=== PATIENT | female | born 1970 | race Caucasian/White ===

== ENCOUNTER 2016-03-17 13:26 | Observation (INO) | payer OTHER ==
[~2016-03-17] VITALS: Ht 165.1 cm; Wt 127.6 kg
--- NOTE | 2016-03-17 15:47 | ED ORDER SUMMARY ---
..... Patient: SOTERO ALDANA I OrderSheet [facility] VisitID: [id number] [address] [place] [address] 46y, F Registration Date/Time: 03/17/2016 ORDER SHEET Weight: 124.7 kg (estimated) Allergies: No Known Drug Allergy GENERAL ORDERS: CBC w Diff Urgent (14:18 03/17/2016 EKoroleva P.A.-C) (Ack 14:25 LNations ER Tech1) (14:36 EHassan R.N.) PT with INR Urgent (14:18 03/17/2016 EKoroleva P.A.-C) (Ack 14:25 LNations ER Tech1) (14:36 EHassan R.N.) PTT Urgent (14:18 03/17/2016 EKoroleva P.A.-C) (Ack 14:25 LNations ER Tech1) (14:36 EHassan R.N.) Vitals (14:18 03/17/2016 EKoroleva P.A.-C) (14:22 SBalde R.N.) EKG - ER Stat (14:53 03/17/2016 EKoroleva P.A.-C) (Ack 14:59 LNations ER Tech1) (15:01 LNations ER Tech1) Vitals (15:34 03/17/2016 EKoroleva P.A.-C) (Ack 15:52 LNations ER Tech1) (16:00 EHassan R.N.) Chest 2V Urgent (15:48 03/17/2016 EKoroleva P.A.-C) (Ack 16:08 LTapper) (16:23 MCampbell) BMP Urgent (15:48 03/17/2016 EKoroleva P.A.-C) (Ack 16:08 LTapper) (16:43 EHassan R.N.) Troponin-I Urgent (15:48 03/17/2016 EKoroleva P.A.-C) (Ack 16:08 LTapper) (16:43 EHassan R.N.) D-Dimer Urgent (16:40 03/17/2016 EKoroleva P.A.-C) (Ack 16:46 LNations ER Tech1) (17:06 EHassan R.N.) CTA Thorax w Cont (Yes) (see lab) Urgent (17:11 03/17/2016 EKoroleva P.A.-C) (Ack 17:13 LNations ER Tech1) (17:21 EHassan R.N.) Brick Catcher (Continuous) (17:15 03/17/2016 EKoroleva P.A.-C) (17:21 EHassan R.N.) CPK (from old lab) Urgent (18:38 03/17/2016 EKoroleva P.A.-C) (Ack 18:39 LNations ER Tech1) (20:04 EHassan R.N.) CPK (1940) Urgent (18:39 03/17/2016 EKoroleva P.A.-C) (Ack 18:54 LNations ER Tech1) (20:04 EHassan R.N.) Troponin-I (194) Urgent (18:39 03/17/2016 EKoroleva P.A.-C) (Ack 19:14 AMcQuoid ER Tech1) (20:04 EHassan R.N.) MEDICATION ORDERS: Afrin Nasal [place] 2 sprays (to LEFT nare, after blowing from left nare complete ) (13:50 03/17/2016 EKoroleva P.A.-C) (14:01 EHassan R.N.) NitroGLYCERIN Paste Topical 1 in. (NOW) (18:22 03/17/2016 EKoroleva P.A.-C) (18:35 EHassan R.N.) GI Cocktail WHITE PO 30 mL with Lidocaine Viscous Mouth/Throat 15 mL, Maalox Plus Oral 15 mL (NOW) (18:35 03/17/2016 EKoroleva P.A.-C) (Ack 18:39 JBoardley R.N.) (18:45 JBoardley R.N.) Carafate PO 1 gm (NOW) (18:37 03/17/2016 EKoroleva P.A.-C) (Ack 18:39 JBoardley R.N.) (18:46 Maynor Matute) IV FLUIDS: IV NS : initial bolus 1000 mL (1000 mL/hr), then 1000 mL/hr for X1 (NOW); David (14:18 03/17/2016 Sherry P.A.-C) (14:33 Edi Matute) Morphine IV 4 mg (HIGH ALERT MEDICATION, NOW) (16:59 03/17/2016 Sherry P.A.-C) (17:09 Adis Matute) Reglan IV 10 mg (NOW) (17:23 03/17/2016 Sherry P.A.-C) (Cancelled: Patient [id number] Adis Matute) ORDER SHEET NOTES: [Electronically signed by Magi Greenfield R.N. (21:40 03/17/2016)] [Electronically signed by Melida NolascoABebo-Masha (21:45 03/17/2016)] [Electronically locked/signed by Magi Greenfield R.N. (21:40 03/17/2016)]
--- NOTE | 2016-03-17 15:47 | ED NURSING NOTES ---
Clinical Report - Nurses [facility] [address] [place] [address] 03/17/2016 13:27 Patient: SOTERO ALDANA I TRIAGE Triage time 13:33 Mar 17 2016. Acuity: LEVEL 4. Chief Complaint: NOSEBLEED and (last nose bleed was ). Alert. No acute distress. (anxious). --13:41 Cindi Olivas R.N. 13:32 03/17/16. BP: 171/89. HR: 113. RR: 18. O2 saturation: 99%. Temp: 98.2 F. Pain level now 0/10. --13:41 Cindi Olivas R.N. Weight: 124.7 kg estimated. Height/Length: 63 inches Estimated. BMI: 48.7. --13:32 Cindi Olivas R.N. Medications Lisinopril Oral (Tablet 20 mg), daily. --13:35 Cindi Olivas R.N. MetFORMIN HCl Oral (Tablet 1000 mg), 2x a day. --13:35 Cindi Olivas R.N. Glimepiride Oral unknown dose, daily. --13:36 Cindi Olivas R.N. Vitamins. --13:36 Cindi Olivas R.N. Atorvastatin Calcium Oral 20 mg, daily. --21:36 Magi Greenfield R.N. Medication/allergy information source: the patient. --13:41 Cindi Olivas R.N. Allergies No Known Drug Allergy. --13:36 Cindi Olivas R.N. History Arrived by EMS. Historian: patient. Accompanied by family. Primary physician (Dr. Fong). ( 25 minutes of a nosebleed. No blood thinners.). This started just prior to arrival. 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 SURGERY HX: . Cholecystectomy. ( blood clot in lung after last - over 15 years ago). SOCIAL HX: Never smoker. No alcohol use or drug use. No infectious disease exposure. NUTRITIONAL RISK ASSESSMENT: The nutritional risk assessment revealed no deficiencies. FUNCTIONAL ASSESSMENT: Functional assessment: no impairments noted. LEARNING NEEDS ASSESSMENT: The learning needs assessment revealed no barriers. SKIN INTEGRITY ASSESSMENT: Skin integrity risk assessment completed. No skin integrity risk identified. --13:41 Cindi Olivas R.N. PROBLEMS: Hypertension. Diabetes Mellitus. --13:39 Cindi Olivas R.N. Interventions ID band on patient. To room. --13:41 Cindi Olivas R.N. PHYSICAL ASSESSMENT To room via stretcher. CVS: Capillary refill less than 2 seconds. SKIN: Skin is warm and dry. --13:44 Cindi Olivas R.N. NURSING PROGRESS NOTES ( Suction set up, pt using it to spit. Nose plug on nose. Daughter at bedside Interpreting.). --13:44 Cindi Olivas R.N. 14:01 03/17/2016 Afrin (Oxymetazoline HCl) Nasal [place] 2 spray given. Given in the left nare. Allergies verified and confirmed 5 rights. --14:01 Magi Greenfield R.N. 14:02 03/17/16. BP: 168/81. HR: 110. RR: 16. O2 saturation: 100% on room air. Pain level now: 10. --14:04 Magi Greenfield R.N. Reassurance given. The patient is calm. Overall patient status is the same- she states feels better. ( Pt states feeling better, bleeding has subsided, spray given as directed.). GENERAL / NEURO / PSYCH: The patient reports global headache that is mild in severity. Two patient identifiers checked. Call light placed in reach. Bed placed in lowest position. Brakes of bed on. Brakes of chair on. --14:04 Magi Greenfield R.N. 14:22 03/17/16. BP: 153/77. HR: 97. RR: 18. O2 saturation: 98%. Pain level now 8/10. --14:23 Cindi Olivas R.N. 14:32 03/17/2016 Site #1 started via IV in the right forearm with an 20g angiocath; one attempt. Saline lock flushed with 5 mL saline (unsuccessful for blood). --14:32 Cindi Olivas R.N. ( Lab here for blood draw). --14:33 Cindi Olivas R.N. 14:33 03/17/2016 Started bag #1 1000 mL IV Fluids IV NS (Saline); at 1000 mL/hr over 1 hour(s) via site #1 via IV pump. Completed per protocol. --14:33 Cindi Olivas R.N. EKG time: (15:02). EKG was performed by a alverto and shown to the ED physician. --15:05 Dustin Carlisle 15:02 03/17/2016 Afrin Nasal [place] Response: no adverse reaction pain is improving. Symptoms have improved the patient feels better. --15:12 Magi Greenfield R.N. 15:00 03/17/16. BP: 151/76 (regular adult cuff) taken on the left arm, via an automated monitor, while lying. HR: 91. RR: 12. O2 saturation: 95% on room air. Pain level now: 05/19. --15:32 Magi Greenfield R.N. Pulse oximeter and NIBP monitor placed on patient. Reassurance given. Reassessment after fluids administered. She is calm and has had no adverse reaction. Overall patient status is improved- she states feels better. GENERAL / NEURO / PSYCH: The patient reports headache is still present but improving and is currently described as throbbing. Alert. Oriented X 4. Call light placed in reach. Brakes of bed on. Brakes of chair on. --15:32 Magi Greenfield R.N. 15:58 03/17/16. BP: 159/78. HR: 101. RR: 18. O2 saturation: 99%. Temp: 98.7 F (oral). Pain level now: 06/18. --16:12 Magi Greenfield R.N. Patient ID band checked for patient name, birthdate and medical record number: patient confirmed. Blood samples drawn from the right antecubital space with 22g butterfly by nurse per protocol ; labeled in presence of the patient and sent to lab: rainbow set. Reassurance given. Reassessment after fluids administered. She has had no adverse reaction. Overall patient status is the same- she states feels worse. ( Pt at approximately 1555 c/o of chest pain VSS, labs obtained as per jagruti HOLM). GENERAL / NEURO / PSYCH: Alert. Oriented X 4. Patient identifiers checked. Call light placed in reach. Brakes of bed on. Brakes of chair on. --16:12 Magi Greenfield R.N. Patient transported to radiology by stretcher. (1613 PM). --16:13 Magi Greenfield R.N. 15:35 03/17/2016 IV Fluids IV NS Discontinued: bag #1 completed. Total amount infused: 1000 mL. IV patency established. IV site checked: no pain, redness, or swelling. IV flushed thoroughly. --17:22 Magi Greenfield R.N. 17:09 03/17/2016 Morphine IVP 4 mg given over 2 minute(s) via site #1. Allergies verified, confirmed 5 rights and sedative warning given to the patient. IVP given by RN. --17:09 Magi Greenfield R.N. 17:09 03/17/16. BP: 147/75. HR: 99. RR: 15. O2 saturation: 97%. Temp: 98.2 F (oral). Pain level now: 06/18. --17:20 Magi Greenfield R.N. Cardiac rhythm: normal sinus rhythm. air sampling and monitoring, pulse oximeter and NIBP monitor placed on patient. Reassurance given. GENERAL / NEURO / PSYCH: Alert. Oriented X 4. RESPIRATORY: Respiratory distress present. Breath sounds normal. SKIN: Skin is warm. Two patient identifiers checked. Call light placed in reach. Side rails up x 1. Brakes of bed on. Brakes of chair on. Patient ready for evaluation- RHYTHMIC GYMNASTICS COACH notified. --17:20 Magi Greenfield R.N. 18:18 03/17/16. BP: 143/76. HR: 87. RR: 16. O2 saturation: 98%. Pain level now: 10. --18:21 Magi Greenfield R.N. Cardiac rhythm: normal sinus rhythm. air sampling and monitoring, pulse oximeter and NIBP monitor placed on patient. Reassurance given. Reassessment after intervention and medication administered. She is resting quietly and has had no adverse reaction. Overall patient status is the same- she states feels the same. GENERAL / NEURO / PSYCH: The patient reports headache. Alert. Oriented X 4. Patient returned from CT by stretcher. Call light placed in reach. Side rails up. Bed placed in lowest position. Brakes of bed on. ( Pt returned from CT, still has H/A, and has CP with radiation to left arm and back side (mid scapula) "feels like needles"). --18:21 Magi Greenfield R.N. 18:30 03/17/2016 NITROGLYCERIN PASTE Topical Paste 1 inch. Applied to the right upper arm. Allergies verified and confirmed 5 rights. --18:35 Magi Greenfield R.N. 18:45 03/17/2016 GI COCKTAIL WHITE (Simethicone) PO 30 mL given. Allergies verified and confirmed 5 rights. --18:45 Bruno Irizarry R.N. 18:46 03/17/2016 Carafate (Sucralfate) PO 1 gm given. Allergies verified and confirmed 5 rights. --18:46 Bruno Irizarry R.N. 18:46 03/17/16. BP: 128/74. HR: 88. RR: 16. O2 saturation: 99% on room air. --18:46 Bruno Irizarry R.N. 18:46 03/17/16. Cardiac rhythm: normal sinus rhythm; (87). --18:46 Bruno Irizarry R.N. 18:46 03/17/16. Patient and family informed about reason for wait and about plan of care. --18:46 Bruno Irizarry R.N. 18:47 03/17/16. ( Pt aware of blood draw to be completed at 1940). --18:47 Bruno Irizarry R.N. 19:06 03/17/16. Reassessment after medication administered. Overall patient status is the same- she states feels the same. --19:06 Bruno Irizarry R.N. 19:06 03/17/16. ( Provider at bedside). --19:06 Bruno Irizarry R.N. 19:00 03/17/16. BP: 129/70 (regular adult cuff) taken on the left arm, via an automated monitor, while lying. HR: 93. RR: 15. O2 saturation: 97% on room air. Temp: 98.2 F (oral). Pain level now: 06/18. --19:22 Magi Greenfield R.N. Cardiac rhythm: normal sinus rhythm. air sampling and monitoring, pulse oximeter and NIBP monitor placed on patient. The patient is calm and resting quietly. Overall patient status is the same- she states feels the same. ( Pt is still experiencing CP with tingling down left arm and mid scapula back, plus KING, meds/cocktail and nitro paste given without any relief.). GENERAL / NEURO / PSYCH: The patient reports headache. Call light placed in reach. Side rails up x 1. Brakes of bed on. --19:22 Magi Greenfield R.N. 19:05 03/17/2016 NITROGLYCERIN PASTE Topical Response: no adverse reaction symptoms are the same. The patient feels the same. --20:05 Magi Greenfield R.N. 19:39 03/17/2016 GI COCKTAIL WHITE PO Response: no adverse reaction. --20:04 Magi Greenfield R.N. 19:40 03/17/2016 Carafate PO Response: no adverse reaction. --20:05 Magi Greenfield R.N. 20:03 03/17/16. BP: 128/80. HR: 90. RR: 15. O2 saturation: 97% on room air. Pain level now: 06/18. --20:45 Magi Greenfield R.N. Cardiac rhythm: normal sinus rhythm. air sampling and monitoring, pulse oximeter and NIBP monitor placed on patient. Reassurance given. The patient is calm and resting quietly and has had no adverse reaction. Overall patient status is the same- she states feels the same. ( Pt continues to have CP radiating to left arm and mid back, lab work WNL, will be admitted for further observation. Pt aware and awaiting on bed and report, comfort provided). GENERAL / NEURO / PSYCH: The patient reports headache. Alert. Oriented X 4. RESPIRATORY: Respiratory distress present. Breath sounds normal. CVS: Capillary refill less than 2 seconds. SKIN: Skin is warm and dry. --20:45 Magi Greenfield R.N. 21:21 03/17/2016 Site #1 reassessed. Converted to saline lock. Flushed with 10 mL saline. --21:21 Magi Greenfield R.N. Cardiac rhythm: normal sinus rhythm. ( Hospitalist at bed side, pt will be transported to room when ready, still experiencing KING, CP like symptoms). GENERAL / NEURO / PSYCH: The patient reports headache. Alert. Oriented X 4. RESPIRATORY: No respiratory distress. Breath sounds normal. CVS: Capillary refill less than 2 seconds. SKIN: Skin is warm and dry. Care transferred and report given (CARI Mitchell). --21:22 Magi Greenfield R.N. 21:00 03/17/16. BP: 104/65. HR: 91. RR: 15. O2 saturation: 100%. Temp: 98.2 F (oral). Pain level now: 07/19. --21:22 Magi Greenfield R.N. Cardiac rhythm: normal sinus rhythm. --21:27 Magi Greenfield R.N. 21:25 03/17/16. BP: 111/74. HR: 93. RR: 12. O2 saturation: 97%. Temp: 98 F (oral). Pain level now: 07/19. Additional comments: KING and CP is about a 4. --21:27 Magi Greenfield R.N. DISPOSITION / DISCHARGE Cardiac rhythm: normal sinus rhythm. Departure time: 2140 PM. The goals identified in the patient's plan of care were met. Transported via wheelchair by transport team. Report was given to a nurse via a phone call. Report included patient's care, treatment, medications, reviewed medication reconcilliation, and condition (including any recent changes or anticipated changes). All questions were answered. Report was acknowledged. ( Pt transferred safely to room). --21:40 Magi Greenfield R.N. 21:30 03/17/16. BP: 111/51. HR: 89. RR: 12. O2 saturation: 98% on room air. Temp: 98.2 F. Pain level now: 07/19. --21:40 Magi Greenfield R.N. Locked/Released at 03/17/2016 21:40 by Magi Greenfield R.N.
--- NOTE | 2016-03-17 15:47 | ED CLINICAL REPORT ---
Clinical Report - Physicians/Mid Levels [facility] [address] [place] [address] 03/17/2016 13:27 Patient: SOTERO ALDANA I Time Seen: 13:49 Mar 17 2016. Arrived- By ambulance. Historian- EMS personnel and daughter. HISTORY OF PRESENT ILLNESS Chief Complaint: NOSEBLEED. Since just prior to arrival and is still present. Location- left nare. The patient has had epistaxis. No nasal congestion or recent nasal injury. (Left naris epistaxis prior to arrival, tended to stop at home, however did not succeed. NO trauma. NO light headeadness.). REVIEW OF SYSTEMS No fever, excessive bruising, bleeding from gums, headache or cough. No nausea, vomiting or abdominal pain. All systems otherwise negative, except as recorded above. PAST HISTORY Problems: Hypertension. Diabetes Mellitus. Additional Surgeries: Cholecystectomy. . Medications: Vitamins. Glimepiride Oral unknown dose, daily. MetFORMIN HCl Oral (Tablet 1000 mg), 2x a day. Lisinopril Oral (Tablet 20 mg), daily. Allergies: No Known Drug Allergy. SOCIAL HISTORY Never smoker. No alcohol use or drug use. ADDITIONAL NOTES The nursing notes have been reviewed. PHYSICAL EXAM Vital Signs: 03/17/2016 13:32 BP: 171/89. HR: 113. RR: 18. O2 saturation: 99%. Temp: 98.2 F. Appearance: Alert. No acute distress. Eyes: No conjunctival findings or pale conjunctivae. ENT: Ears normal. Nose: Minimal left-nare active bleeding anteriorly (left lee). Fresh clots present. Dried blood present. No nasal foreign body. No nasal discharge. Throat: Pharynx normal. Neck: Normal inspection. No meningeal signs. CVS: Tachycardia. Heart sounds normal. Rhythm normal. No cardiac murmur. Respiratory: No respiratory distress. Breath sounds normal. No rales. Abdomen: Soft and nontender. Back: Normal inspection. No CVA tenderness. Skin: Skin warm. Neuro: Oriented X 3. LABS, X-RAYS, AND EKG EKG: EKG time: (2502). No acute process. No acute ischemia. Rate: 93. Normal P waves. Normal TASIA. Normal QRS complex. Normal axis. Normal ST and T waves and QT. The study has been interpreted contemporaneously. The study has been independently viewed by me. The EKG appears to be a good tracing. Chest X-ray: (IMPRESSION: 1. Negative chest. Electronically Final signed by:Isiah Luis MD 03/17/2016 4:27:02 PM). Chest CT: (IMPRESSION: 1. Limited opacification of the pulmonary arteries. There are no large central pulmonary emboli but cannot exclude small peripheral emboli 2. Two small peripheral pulmonary nodules, indeterminate but likely postinflammatory 3. Cholecystectomy 4. Results discussed with MP Willams Electronically Final signed by:Edmundo Torre MD 03/17/2016 6:21:25 PM). Laboratory Tests: CBC w Diff: (ERNESTO: 03/17/2016 14:35) ( [facility] 14:40) Final results Test Result Flag Units (Reference) WHITE BLOOD COUNT 6.8 K/uL (4.5-11.5) RED BLOOD COUNT 4.52 M/uL (4.00-5.20) HEMOGLOBIN 12.1 gm/dL (12.0-16.0) HEMATOCRIT 36.9 % (36.0-46.0) MEAN CELL VOLUME 82 fL (80-100) MEAN CORPUSCULAR HGB 27 pg (26-34) MEAN CORPUSCULAR HGB CONC 33 g/dL (31-37) RED CELL DISTRIBUTION WIDTH 14.3 % (11.6-14.8) PLATELET COUNT 234 K/uL (150-400) NEUTROPHIL % 72.6 % (50-75) LYMPH % 18.9 L % (25-40) MONO % 7.5 % (3-14) EOSINOPHIL % 0.6 % (0-4) BASOPHIL % 0.4 % (0-2) PT with INR: (ERNESTO: 03/17/2016 14:35) ( MsgRcvd 03/17/2016 14:54) Final results Test Result Flag Units (Reference) INR 0.9 (0.8-1.2) Low Intensity Therapy: INR 1.5-2.0 PT range 18.5-23.1Mod.Intensity Therapy: INR 2.0-3.0 PT range 23.1-31.5High Intensity Therapy: INR 2.5-3.5 PT range 27.4-35.5High Intensity Therapy 2: INR 3.0-4.0 PT range 31.5-39.3 APTT 28 SECONDS (24-34) BMP: (ERNESTO: 03/17/2016 14:35) ( MsgRcvd 03/17/2016 16:26) Final results Test Result Flag Units (Reference) GLUCOSE 233 H mg/dL (70-110) BUN 14 mg/dL (7-18) CREATININE 0.9 mg/dL (0.6-1.3) Estimated GFR >60 mL/min Estimated GFR- >60 mL/min Note: Persistent reduction over 3 months in eGFR<60 mL/min/1.73 m2 defines CKD. Patients with eGFR values>=60 mL/min/1.73 m2 may also have CKD if evidence ofpersistent proteinuria. Additional information may be foundat www.kidney.org. SODIUM 138 mmol/L (136-145) POTASSIUM 4.2 mmol/L (3.5-5.1) CHLORIDE 102 mmol/L (98-107) CARBON DIOXIDE 24 mmol/L (21-32) CALCIUM 9.4 mg/dL (8.5-10.1) TROPONIN I <0.05 L ng/mL (0.00-1.5) TROPONIN REFERENCE RANGE:<0.1 NEGATIVE0.1-1.5 INDETERMINANT>1.5 POSITIVE . PROGRESS AND PROCEDURES Course of Care: Patient developed some generalized chest, felt weak, thus IV was started, and lab workup. EKG unremarkable, we'll obtain a chest x-ray as well as troponin, as well as a d-dimer, as her symptoms have persisted. [place] dizzy with ambulation, may be secondary to recent epistaxis, otherwise her H&H is stable. Discussed case with DR. Damon, will obtain ct, given tearing pain with radiation to back, CT chest negative. Discussed case with DR. Wu, hospitalist, advices for second set of trop. Second set of torp negative. Discussed case with Dr. Swenson 20:30, who accepts pt, plan agreed upon. Holding orders written by Dr. Damon. 03/17/2016 21:30 BP: 111/51. HR: 89. RR: 12. O2 saturation: 98%. Temp: 98.2 F. Pain level now: 07/19. 03/17/2016 21:25 BP: 111/74. HR: 93. RR: 12. O2 saturation: 97%. Temp: 98 F. Pain level now: 07/19. 03/17/2016 19:00 BP: 129/70. HR: 93. RR: 15. O2 saturation: 97%. Temp: 98.2 F. Pain level now: 06/18. 03/17/2016 18:46 BP: 128/74. HR: 88. RR: 16. O2 saturation: 99%. 03/17/2016 18:18 BP: 143/76. HR: 87. RR: 16. O2 saturation: 98%. Pain level now: 05/19. 03/17/2016 17:09 BP: 147/75. HR: 99. RR: 15. O2 saturation: 97%. Temp: 98.2 F. Pain level now: 06/18. Patient is stable. The patient's symptoms are unchanged. Patient/family counseled. Differential Diagnosis: I considered muscle strain, costochondritis, pleurisy, epidemic pleurodynia, intercostal neuritis, myocardial infarction, intermediate coronary syndrome, aortic dissection, mitral valve prolapse, pulmonary embolism, pneumonia and gastroesophageal reflux disease as a possible cause of chest pain in this patient. This is a partial list of diagnoses considered. Disposition: Admitted. CLINICAL IMPRESSION Acute anterior, transient epistaxis Chest Pain. INSTRUCTIONS No strenuous activity. Rest. Drink plenty of fluids. (if this occurs, blow nose out of area with bleed, then two sprays of AFRIN, then clamp with fingers or clamp for 20 minutes, if persistent heavy bleeding, clamp for another 15 mins if continued bleeding may return to ER PUT Vaseline on outside of nose during day and at night time). Warnings: Further evaluation is necessary. OTC Medications: Afrin nasal spray (Available over the counter): Take according to label instructions. Follow-up: Follow up with your doctor in three days as needed. (Electronically signed by Melida Nolasco P.A.-C 03/17/2016 21:45)
--- NOTE | 2016-03-17 15:47 | ED ORDER SUMMARY ---
..... Patient: SOTERO ALDANA I OrderSheet [facility] VisitID: [id number] [address] [place] [address] 46y, F Registration Date/Time: 03/17/2016 ORDER SHEET Weight: 124.7 kg (estimated) Allergies: No Known Drug Allergy GENERAL ORDERS: CBC w Diff Urgent (14:18 03/17/2016 EKoroleva P.A.-C) (Ack 14:25 LNations ER Tech1) (14:36 EHassan R.N.) PT with INR Urgent (14:18 03/17/2016 EKoroleva P.A.-C) (Ack 14:25 LNations ER Tech1) (14:36 EHassan R.N.) PTT Urgent (14:18 03/17/2016 EKoroleva P.A.-C) (Ack 14:25 LNations ER Tech1) (14:36 EHassan R.N.) Vitals (14:18 03/17/2016 EKoroleva P.A.-C) (14:22 SBalde R.N.) EKG - ER Stat (14:53 03/17/2016 EKoroleva P.A.-C) (Ack 14:59 LNations ER Tech1) (15:01 LNations ER Tech1) Vitals (15:34 03/17/2016 EKoroleva P.A.-C) (Ack 15:52 LNations ER Tech1) (16:00 EHassan R.N.) Chest 2V Urgent (15:48 03/17/2016 EKoroleva P.A.-C) (Ack 16:08 LTapper) (16:23 MCampbell) BMP Urgent (15:48 03/17/2016 EKoroleva P.A.-C) (Ack 16:08 LTapper) (16:43 EHassan R.N.) Troponin-I Urgent (15:48 03/17/2016 EKoroleva P.A.-C) (Ack 16:08 LTapper) (16:43 EHassan R.N.) D-Dimer Urgent (16:40 03/17/2016 EKoroleva P.A.-C) (Ack 16:46 LNations ER Tech1) (17:06 EHassan R.N.) CTA Thorax w Cont (Yes) (see lab) Urgent (17:11 03/17/2016 EKoroleva P.A.-C) (Ack 17:13 LNations ER Tech1) (17:21 EHassan R.N.) Framing Manager (Continuous) (17:15 03/17/2016 EKoroleva P.A.-C) (17:21 EHassan R.N.) CPK (from old lab) Urgent (18:38 03/17/2016 EKoroleva P.A.-C) (Ack 18:39 LNations ER Tech1) (20:04 EHassan R.N.) CPK (1940) Urgent (18:39 03/17/2016 EKoroleva P.A.-C) (Ack 18:54 LNations ER Tech1) (20:04 EHassan R.N.) Troponin-I (194) Urgent (18:39 03/17/2016 EKoroleva P.A.-C) (Ack 19:14 AMcQuoid ER Tech1) (20:04 EHassan R.N.) MEDICATION ORDERS: Afrin Nasal [place] 2 sprays (to LEFT nare, after blowing from left nare complete ) (13:50 03/17/2016 EKoroleva P.A.-C) (14:01 EHassan R.N.) NitroGLYCERIN Paste Topical 1 in. (NOW) (18:22 03/17/2016 EKoroleva P.A.-C) (18:35 EHassan R.N.) GI Cocktail WHITE PO 30 mL with Lidocaine Viscous Mouth/Throat 15 mL, Maalox Plus Oral 15 mL (NOW) (18:35 03/17/2016 EKoroleva P.A.-C) (Ack 18:39 JBoardley R.N.) (18:45 JBoardley R.N.) Carafate PO 1 gm (NOW) (18:37 03/17/2016 EKoroleva P.A.-C) (Ack 18:39 JBoardley R.N.) (18:46 Maynor Matute) IV FLUIDS: IV NS : initial bolus 1000 mL (1000 mL/hr), then 1000 mL/hr for X1 (NOW); David (14:18 03/17/2016 Sherry P.A.-C) (14:33 Edi Matute) Morphine IV 4 mg (HIGH ALERT MEDICATION, NOW) (16:59 03/17/2016 Sherry P.A.-C) (17:09 Adis Matute) Reglan IV 10 mg (NOW) (17:23 03/17/2016 Sherry P.A.-C) (Cancelled: Patient [id number] Adis Matute) ORDER SHEET NOTES: [Electronically signed by Magi Greenfield R.N. (21:40 03/17/2016)] [Electronically signed by Melida NolascoABebo-Masha (21:45 03/17/2016)] [Electronically locked/signed by Magi Greenfield R.N. (21:40 03/17/2016)]
--- NOTE | 2016-03-17 16:23 | DIAGNOSTIC IMAGING REPORT ---
PROCEDURE: XR CHEST 2 VIEW INDICATION: CHEST PAIN TECHNIQUE: PA and lateral views. COMPARISON: None. FINDINGS: Lungs are clear. Heart and mediastinum are normal. Thorax is normal. IMPRESSION: 1. Negative chest.
--- NOTE | 2016-03-17 18:21 | DIAGNOSTIC IMAGING REPORT ---
PROCEDURE: CTA THORAX WITH CONTRAST INDICATION: CHEST PAIN, initial encounter TECHNIQUE: 76 ml of Isovue 370 was injected intravenously and axial images were obtained of the entire thorax with 3D sagittal and coronal MIP reconstructions. COMPARISON: Chest x-ray 03/17/2016 FINDINGS: Limited opacification of the pulmonary arteries. There are no large central prior emboli but cannot exclude small peripheral emboli. 3 mm peripheral right lower lobe nodule (image 65) and 4 mm peripheral left lower lobe nodule (image 70), indeterminate but likely benign. No adenopathy or effusion. Normal thoracic aorta. Heart size is normal. Cholecystectomy. Moderate degenerative changes of the spine. IMPRESSION: 1. Limited opacification of the pulmonary arteries. There are no large central pulmonary emboli but cannot exclude small peripheral emboli 2. Two small peripheral pulmonary nodules, indeterminate but likely postinflammatory 3. Cholecystectomy 4. Results discussed with Amando Nolasco, PAC
[2016-03-17 21:46] VITALS: BP 116/63
--- NOTE | 2016-03-17 21:46 | ED MAR SUMMARY ---
..... Medication Administration Record [facility] [address] [place] [address] Patient: SOTERO ALDANA I Visit ID: [id number] 46y, F Weight: 124.7 kg Height/Length: 63 in BMI: 48.7 ALLERGIES: No Known Drug Allergy Given 14:01 03/17/2016 Magi Greenfield R.N. Medication Administered: AFRIN [NASAL SPRAY] (OXYMETAZOLINE HCL), Dose: 2 spray Nasal [place]. Medication Ordered: Afrin Nasal [place] 2 sprays (to LEFT nare, after blowing from left nare complete ). Start 14:33 03/17/2016 Cindi Olivas R.N., Stop 15:35 03/17/2016 Magi Greenfield R.N. Medication Administered: IV NS (SALINE), Dose: IV Fluids over 1 hour(s), Rate: 1000 mL/hr, Dispensed: 1000 mL bag, Site: #1 right forearm. Medication Ordered: IV NS : initial bolus 1000 mL (1000 mL/hr), then 1000 mL/hr for X1 (NOW); David. Given 17:09 03/17/2016 Magi Greenfield R.N. Medication Administered: MORPHINE [IVP], Dose: 4 mg IVP over 2 minute(s), Site: #1 right forearm. Medication Ordered: Morphine IV 4 mg (HIGH ALERT MEDICATION, NOW). Given 18:30 03/17/2016 Magi Greenfield R.N. Medication Administered: NITROGLYCERIN PASTE [TOPICAL], Dose: 1 in. Paste Topical. Medication Ordered: NitroGLYCERIN Paste Topical 1 in. (NOW). Given 18:45 03/17/2016 Bruno Irizarry R.N. Medication Administered: GI COCKTAIL WHITE [PO] (SIMETHICONE), Dose: 30 mL PO. Medication Ordered: GI Cocktail WHITE PO 30 mL with Lidocaine Viscous Mouth/Throat 15 mL, Maalox Plus Oral 15 mL (NOW). Given 18:46 03/17/2016 Bruno Irizarry R.N. Medication Administered: CARAFATE [PO] (SUCRALFATE), Dose: 1 gm PO. Medication Ordered: Carafate PO 1 gm (NOW).
--- NOTE | 2016-03-17 21:46 | ED DISCHARGE INSTRUCTIONS ---
Patient: SOTERO ALDANA I General Instructions [facility] VisitID: [id number] [address] [place] [address] 46y, F Registration Date/Time: 03/17/2016 Acute anterior, transient epistaxis Chest Pain. INSTRUCTIONS No strenuous activity. Rest. Drink plenty of fluids. (if this occurs, blow nose out of area with bleed, then two sprays of AFRIN, then clamp with fingers or clamp for 20 minutes, if persistent heavy bleeding, clamp for another 15 mins if continued bleeding may return to ER PUT Vaseline on outside of nose during day and at night time). Warnings: Further evaluation is necessary. OTC Medications: Afrin nasal spray (Available over the counter): Take according to label instructions. Follow-up: Follow up with your doctor in three days as needed. ADDITIONAL INFORMATION Nosebleed [Adult] Bleeding from the nose most commonly occurs due to injury or drying and cracking of the inner lining of the nose. This can occur during a "common cold," "hay fever" attack, a very hot day, or from dry air in the winter. High blood pressure and hardening of the arteries (atherosclerosis) may also cause nosebleeds. If the bleeding site is found, it may be treated with a chemical or heat or electricity to cause a blood clot to form (cauterized). If the bleeding continues after cautery or if the bleeding site cannot be found, a packing may be placed in your nose to apply pressure and stop the bleeding. The packing may be made of gauze or sponge. A small balloon catheter is sometimes used. These need to be removed by your doctor. Some types of packing dissolve on their own. Home Care: If a packing was put in your nose, unless told otherwise, do not pull on it or try to remove it yourself. You will be given an appointment to have it removed. You may also have been given antibiotics to prevent a sinus infection. If so, complete all the medicine. Do not blow your nose for 12 hours after the bleeding stops. This will allow a strong blood clot to form. Do not pick your nose. This may restart bleeding. Avoid alcohol and hot liquids for the next two days. Alcohol or hot liquids in your mouth can dilate blood vessels in your nose and cause bleeding to start again. Do not take ibuprofen (Advil, Motrin), naprosyn (Aleve) or aspirin-containing medicines since these thin the blood and may promote nose bleeding. You may take Tylenol (acetaminophen) for pain, unless another pain medicine was prescribed. If the bleeding starts again, sit up and lean forward to prevent swallowing blood. Pinch your nose tightly for exactly 5 minutes (watch the clock). If bleeding is not controlled, continue to pinch and call your doctor or return to this facility. If high blood pressure was a cause for your nosebleed, have your blood pressure checked again tomorrow. If you have a "cold" or "hay fever" or dry nasal membranes, lubricate the nasal passages by applying a small amount of Vaseline inside the nose with a Q-tip twice a day (morning and night). Avoid overheating your home, which can dry the air and worsen your condition. Follow Up with your doctor as advised for packing removal. Nasal packing should be rechecked or removed within 2-3 days. Get Prompt Medical Attention if any of the following occur: Another nosebleed that you cannot control Dizziness, weakness or fainting Fever of 100.4F (38C) or higher, or as directed by your healthcare provider Headache Sinus or facial pain Shortness of breath or trouble breathing You have been given the following additional information: Epistaxis (Adult) No strenuous activity. Rest. (Electronically signed by Melida Nolasco P.A.-C 03/17/2016 21:45)
--- NOTE | 2016-03-17 21:46 | ED MED RECONCILIATION SUMMARY ---
Patient: SOTERO ALDANA I Medication Reconciliation Report [facility] VisitID: [id number] [address] [place] [address] 46y, F Registration Date/Time: 03/17/2016 Weight: 124.7 kg Height/Length: 63 in. BMI: 48.7 ALLERGIES: No Known Drug Allergy The patient's Home Medications are listed below: THE FOLLOWING MEDICATIONS NEED TO BE RECONCILED: Atorvastatin Calcium Oral 20 mg, daily Glimepiride Oral unknown dose, daily Lisinopril Oral (20 mg), daily MetFORMIN HCl Oral (1000 mg), 2x a day Vitamins The source(s) of the original Home Medication information: patient The following Medications were given to the patient in the Emergency Department: Afrin [Nasal [place]] Nasal [place] 2 spray, administered: 03/17/2016 2:01:00 PM IV NS IV Fluids bolus 0, then 1000 mL/hr, administered: 03/17/2016 2:33:00 PM Morphine [IVP] IVP 4 mg, administered: 03/17/2016 5:09:00 PM NITROGLYCERIN PASTE [TOPICAL] Topical 1 in., administered: 03/17/2016 6:30:00 PM GI COCKTAIL WHITE [PO] PO 30 mL, administered: 03/17/2016 6:45:00 PM Carafate [PO] PO 1 gm, administered: 03/17/2016 6:46:00 PM The following Medications were prescribed to the patient: Afrin nasal spray (Available over the counter): Take according to label instructions. -- Melida Nolasco, PBeboA.-C
--- NOTE | 2016-03-17 21:46 | ED MED RECONCILIATION SUMMARY ---
Patient: SOTERO ALDANA I Medication Reconciliation Report [facility] VisitID: [id number] [address] [place] [address] 46y, F Registration Date/Time: 03/17/2016 Weight: 124.7 kg Height/Length: 63 in. BMI: 48.7 ALLERGIES: No Known Drug Allergy The patient's Home Medications are listed below: THE FOLLOWING MEDICATIONS NEED TO BE RECONCILED: Atorvastatin Calcium Oral 20 mg, daily Glimepiride Oral unknown dose, daily Lisinopril Oral (20 mg), daily MetFORMIN HCl Oral (1000 mg), 2x a day Vitamins The source(s) of the original Home Medication information: patient The following Medications were given to the patient in the Emergency Department: Afrin [Nasal [place]] Nasal [place] 2 spray, administered: 03/17/2016 2:01:00 PM IV NS IV Fluids bolus 0, then 1000 mL/hr, administered: 03/17/2016 2:33:00 PM Morphine [IVP] IVP 4 mg, administered: 03/17/2016 5:09:00 PM NITROGLYCERIN PASTE [TOPICAL] Topical 1 in., administered: 03/17/2016 6:30:00 PM GI COCKTAIL WHITE [PO] PO 30 mL, administered: 03/17/2016 6:45:00 PM Carafate [PO] PO 1 gm, administered: 03/17/2016 6:46:00 PM The following Medications were prescribed to the patient: Afrin nasal spray (Available over the counter): Take according to label instructions. -- Melida Nolasco, PBeboA.-C
--- NOTE | 2016-03-17 21:46 | ED MAR SUMMARY ---
..... Medication Administration Record [facility] [address] [place] [address] Patient: SOTERO ALDANA I Visit ID: [id number] 46y, F Weight: 124.7 kg Height/Length: 63 in BMI: 48.7 ALLERGIES: No Known Drug Allergy Given 14:01 03/17/2016 Magi Greenfield R.N. Medication Administered: AFRIN [NASAL SPRAY] (OXYMETAZOLINE HCL), Dose: 2 spray Nasal [place]. Medication Ordered: Afrin Nasal [place] 2 sprays (to LEFT nare, after blowing from left nare complete ). Start 14:33 03/17/2016 Cindi Olivas R.N., Stop 15:35 03/17/2016 Magi Greenfield R.N. Medication Administered: IV NS (SALINE), Dose: IV Fluids over 1 hour(s), Rate: 1000 mL/hr, Dispensed: 1000 mL bag, Site: #1 right forearm. Medication Ordered: IV NS : initial bolus 1000 mL (1000 mL/hr), then 1000 mL/hr for X1 (NOW); David. Given 17:09 03/17/2016 Magi Greenfield R.N. Medication Administered: MORPHINE [IVP], Dose: 4 mg IVP over 2 minute(s), Site: #1 right forearm. Medication Ordered: Morphine IV 4 mg (HIGH ALERT MEDICATION, NOW). Given 18:30 03/17/2016 Magi Greenfield R.N. Medication Administered: NITROGLYCERIN PASTE [TOPICAL], Dose: 1 in. Paste Topical. Medication Ordered: NitroGLYCERIN Paste Topical 1 in. (NOW). Given 18:45 03/17/2016 Bruno Irizarry R.N. Medication Administered: GI COCKTAIL WHITE [PO] (SIMETHICONE), Dose: 30 mL PO. Medication Ordered: GI Cocktail WHITE PO 30 mL with Lidocaine Viscous Mouth/Throat 15 mL, Maalox Plus Oral 15 mL (NOW). Given 18:46 03/17/2016 Bruno Irizarry R.N. Medication Administered: CARAFATE [PO] (SUCRALFATE), Dose: 1 gm PO. Medication Ordered: Carafate PO 1 gm (NOW).
--- NOTE | 2016-03-17 21:47 | NUR ---
PATIENT TO ROOM 204B FROM THE ER ACCOMPANIED BY THE FRIEND. PATIENT IS ALERT AND ORIENTED, PLEASANT. COMPLAINS OF CHEST PAIN AND HEADACHE 07/19. NOTIFIED DR ROBERTS THAT PATIENT IS HERE.
--- NOTE | 2016-03-17 22:33 | HISTORY AND PHYSICAL ---
ADMITTED: 03/17/2016 CHIEF COMPLAINT: 1. Left upper chest pain HISTORY OF PRESENT ILLNESS: The patient is a 46-year-old diabetic female with hypertension, who developed a bloody nose on the day of admission. She was brought to the emergency department because this was prolonged, approximately 30 minutes, and difficult to control. While in the emergency department, she was noted to be hypertensive and this improved. Her epistaxis became controlled with minimal interventive measures. However, while in the emergency department, she developed left upper anterior chest pain with radiation of the pain to her left scapular region. This was associated with mild shortness of breath, but she was without nausea or vomiting. The chest pain persisted despite morphine and probably nitroglycerin. It continued at a level of 4/10 despite interventions. Workup in the emergency department included blood work with 2 sets of cardiac enzymes approximately 5 hours apart. She also had EKGs that were normal x2. She did have a normal chest x-ray, and as well because of an elevated D-dimer and ongoing chest pain, had a CT angiogram of her chest, which was without any acute changes and doubtful for PE. MEDICAL/SURGICAL HISTORY: Past medical history is positive for hypertension; type 2 diabetes mellitus; GERD, now controlled without medications; hyperlipidemia; ventral hernia. She is status post x3. She has had 1 miscarriage. She is status post cholecystectomy. MEDICATIONS: 1. Metformin ------- 2. Lisinopril ------- 3. Glimepiride ------- 4. Atorvastatin ------- ALLERGIES: 1. NONE KNOWN. SOCIAL HISTORY: She is . 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 She has 3 children. She does not drink, smoke, or do any drugs. FAMILY HISTORY: Noncontributory. She does have an aunt with a history of breast cancer, but no diabetes, heart disease, epilepsy, stroke, or thyroid problems. REVIEW OF SYSTEMS: She denied any swelling of her extremities. She does have some joint pains intermittently. She did note a bloody nose last . She has had diarrhea x2 this morning. She has no complaints. Her skin is dry. Her breasts are without problems. ENT review was otherwise unremarkable. She has no history of thyroid problems. Her diabetes has been under fair control. PHYSICAL EXAMINATION: VITAL SIGNS: Initially presented to the ambulance with a pulse of 140 and a blood pressure elevated at 176/100 with a pulse oximetry of 98. In the emergency department, her blood pressure and pulse both came under good control. She is afebrile. GENERAL: The patient is awake, alert, in no acute distress. HEENT: Head is normocephalic, atraumatic. There is no current epistaxis. Nares are clear. Ears are clear. Pharynx is without erythema and is well hydrated. NECK: Supple. There is no thyromegaly, mass, or bruit. She does have a posterior hump. LUNGS: Clear to auscultation. HEART: Rate and rhythm regular without murmur, click, rub, or gallop. ABDOMEN: Soft, obese, nontender. Bowel sounds are present. BACK: Without CVAT. SKIN: No significant lesions and is well hydrated and minimally dry. GENITORECTAL: Examination was not performed. EXTREMITIES: Showed no clubbing, cyanosis, or edema, though her lower legs are puffy, perhaps. MUSCULOSKELETAL: Generally unremarkable. She has normal gait and balance. Good coordination. NEUROLOGIC: Normal speech, though she is [place] and has a Palestinian spring forger present for the evaluation. LAB/IMAGING: Laboratory results showed a normal CBC. Normal coag panel. D-dimer normal at 0.41. EKG, chest CTA, and chest x-ray were unremarkable, though 2 small peripheral pulmonary nodules were noted and the patient relates a history of this in the past. She did have a workup done of the cardiac arrhythmia with a negative 24-hour monitor approximately 1 year ago. IMPRESSION/PLAN: 1. Chest pain, doubtful of cardiac origin as it is atypical, occurring at rest and persistent despite interventions. The EKGs and 2 negative enzymes are reassuring. She is admitted at this time to await a third set of enzymes 6 hours after the second set to rule out cardiac ischemia or injury pattern. We will also repeat her EKG in the morning. 2. Epistaxis, controlled. 3. Type 2 diabetes mellitus, on medications. 4. Hypertension, improved and stable. 5. Hyperlipidemia. 6. Ventral hernia, awaiting surgery. 7. Gastroesophageal reflux disease, asymptomatic.
--- NOTE | 2016-03-17 22:34 | NUR ---
CALLED DR ROBERTS REGARDING THE HEADACHE, RECIEVED ORDERS FOR TYLENOL. CHEST PAIN DOWN TO 4/10. TELE SHOWS NSR. CARDIAC ENZYMES HAVE BEEN NEGATIVE. PATIENT DENIES ANY NAUSEA OR VOMITTING, OR DIFFICULTY BREATHING. IV HEPLOCKED. WILL MONITOR, CALL LIGHT WITHIN REACH.
[2016-03-17] MEDS ORDERED: GLIMEPIRIDE1 MG PO (22:37)
[2016-03-17] MEDS ORDERED: METFORMIN HCL500 MG PO (22:37)
[2016-03-17] MEDS ORDERED: MULTIVITAMIN1 TAB PO (22:37)
[2016-03-17] MEDS ORDERED: LISINOPRIL10 MG PO (22:37)
[2016-03-17 23:07] VITALS: BP 118/65
[2016-03-18 02:30] VITALS: BP 110/64
--- NOTE | 2016-03-18 06:30 | NUR ---
Pt. is resting in bed at this time. Pt. c/o chest pain consistently at 2-4/10 pain in L side of chest and also still in L scapula region. Pt. c/o 4/10 headache as well, tylenol effective. Pt. is on tele NSR with HR in the 70's/80's. Denies SOB or dizziness. Cardiac enzymes negative. Pt. knows to notify RN if chest pain worsens/changes. WCTM. Call light within reach.
[2016-03-18 06:36] VITALS: BP 109/60
[2016-03-18 10:29] VITALS: BP 121/62
--- NOTE | 2016-03-18 10:44 | NUR ---
ALERT AND ORIENTED PT WHO CONT TO HAVE "A LITTLE PAIN" L CHEST.SHE C/O LUE PAIN SHOULDER TO ELBOW AND STATES HER ROM IN THAT ARM IS LIMITED. TELE SHOW SR WITHOUT ECTOPY. IL RFA IS INTACT.
--- NOTE | 2016-03-18 12:18 | Provider's Discharge Care Plan ---
Problem, Goal, Plan Problem List 1. Chest pain Instructions: - if have repeat chest pain please come to the ER , - take medications as prescribed, - return to work when needed 2. Shoulder pain Instructions: - if shoulder pain persists with oral pain medication please see your primary care doctor
--- NOTE | 2016-03-18 12:19 | Discharge Summary ---
Discharge Summary Report Admit Date 03/17/16 Discharge Date 03/18/16 Admission Diagnosis chest pain Discharge Diagnosis chest pain of unkown etiology possible anxiety induced Brief History The patient is a 46-year-old diabetic female with hypertension, who developed a bloody nose on the day of admission. She was brought to the emergency department because this was prolonged, approximately 30 minutes, and difficult to control. While in the emergency department, she was noted to be hypertensive and this improved. Her epistaxis became controlled with minimal interventive measures. However, while in the emergency department, she developed left upper anterior chest pain with radiation of the pain to her left scapular region. This was associated with mild shortness of breath, but she was without nausea or vomiting. The chest pain persisted despite morphine and probably nitroglycerin. It continued at a level of 4/10 despite interventions. Workup in the emergency department included blood work with 2 sets of cardiac enzymes approximately 5 hours apart. She also had EKGs that were normal x2. She did have a normal chest x-ray, and as well because of an elevated D-dimer and ongoing chest pain, had a CT angiogram of her chest, which was without any acute changes and doubtful for PE. Hospital Course Pateint was admitted for rule out chest pain. Patient was seen to have negative EKGs and negative cardiac enzymes. Patient was monitored on telemetry and no events were noted througout the night. Patient did not have any repeat episodes of chest pain throughout the night. Patient will be discharged today. Patient will resume her home medications. Patient will follow up with her pmd if repeat symptoms occur. Patient was additionally instructed to watch for signs of anxiety as this could possibly be a reasoning to why these symptoms occured. General Appearance Alert, Oriented X3, No acute distress HEENT Atraumatic, PERRLA Lungs Clear to auscultation Cardiovascular Normal S1, Normal S2 Abdomen Normal bowel sounds, Soft Skin No Rashes Lab/Imaging Laboratory Tests 03/17 03/17 03/17 03/18 03/18 1435 [id number] Chemistry Plasma Sodium (136 - 145 mmol/L) 138 Plasma Potassium (3.5 - 5.1 mmol/L) 4.2 Plasma Chloride (98 - 107 mmol/L) 102 CO2 (Enzymatic) (21 - 32 mmol/L) 24 BUN (7 - 18 mg/dL) 14 Creatinine (0.6 - 1.3 mg/dL) 0.9 Est GFR ( Amer) (mL/min) >60 Est GFR (Non-Af Amer) (mL/min) >60 Glucose (70 - 110 mg/dL) 233 Plasma Calcium (8.5 - 10.1 mg/dL) 9.4 Creatine Kinase (24 - 260 U/L) 83 79 75 Troponin (0.00 - 1.5 ng/mL) <0.05 <0.05 <0.05 Coagulation INR (0.8 - 1.2) 0.9 APTT (24 - 34 SECONDS) 28 D-Dimer, Quantitative (0.27 - 0.52 ug/mLFEU) 0.41 Hematology WBC (4.5 - 11.5 K/uL) 6.8 RBC (4.00 - 5.20 M/uL) 4.52 Hgb (12.0 - 16.0 gm/dL) 12.1 Hct (36.0 - 46.0 %) 36.9 MCV (80 - 100 fL) 82 MCH (26 - 34 pg) 27 RDW (11.6 - 14.8 %) 14.3 Neut % (Auto) (50 - 75 %) 72.6 Lymph % (Auto) (25 - 40 %) 18.9 [place] % (Auto) (3 - 14 %) 7.5 Eos % (Auto) (0 - 4 %) 0.6 Baso % (Auto) (0 - 2 %) 0.4 Plt Count, EDTA (150 - 400 K/uL) 234 PUBS MCHC (31 - 37 g/dL) 33 Discharge Instructions/Meds - take medications as prescribed - if repeat episode occurs please come to the emergency room - if shoulder pain persists please see your primary care doctor
--- NOTE | 2016-03-18 13:35 | NUR ---
DISCHARGE INFORMATION REVIEWED WITH PT INCLUDING CHEST PAIN AND L SHOULDER PAIN EDUCATION. IL WAS DISCONTINUED WITHOUT PROBLEMS. TELE WAS DISCONTINUED AND RHYTHM WAS NORMAL SINUS. PT DISCHARGED TO HOME AMBULATING WITH STAFF ESCORT.
== END 2016-03-18 13:00 | disposition home or self-care (01) ==
LOC: ED SRH 13:26 → TRANS SRH 20:37 → ACUTE2 SRH 21:41
PROVIDERS: ADMIT Emergency Medicine
DX: R07.9 Chest pain, unspecified (principal); I10 Essential (primary) hypertension; R04.0 Epistaxis; E11.9 Type 2 diabetes mellitus without complications; Z79.84 Long term (current) use of oral hypoglycemic drugs; K21.9 Gastro-esophageal reflux disease without esophagitis; E78.5 Hyperlipidemia, unspecified
CPT/HCPCS: 29230; 90047; 90074; 90098; 90616; 91556; 92610; 94001; 94060; 95059